=== PATIENT | male | born 1985 | race Caucasian/White ===

== ENCOUNTER 2019-01-24 22:12 | Emergency (ER) | payer MEDICAID ==
[~2019-01-24] VITALS: Ht 180.3 cm; Wt 69.9 kg
--- NOTE | 2019-01-24 23:04 | NUR ---
PT BECAME VERBALLY AGGRESSIVE TO STAFF STATING "DONT TELL ME TO FUCK OFF." WHEN NOBODY HAD EVEN TALKED TO HIM. STARTED SCREAMING INCOHERENTLY AT STAFF AND SECURITY IS AT BEDSIDE FOR STANDBY.
--- NOTE | 2019-01-24 23:05 | NUR ---
ADMITS TO TAKING 3 VICODIN [employer]IST DUE TO "BEING SAD." PUPILS ARE 1-2MM AND VERY SLUGGISH
[2019-01-24 23:14] LABS: BASOPHILS % (AUTO) 0.5 % (0-1); EOSINOPHILS # (AUTO) 0.1 X10'3 (0-0.9); EOSINOPHILS % (AUTO) 1.7 % (0-6); HEMATOCRIT 43.8 % (42.0-52.0); HEMOGLOBIN 14.7 g/dl (14.0-17.9); LYMPHOCYTES # (AUTO) 2.1 X10'3 (1.1-4.8); MEAN CORPUSCULAR HEMOGLOBIN 31.4 PG (27.0-31.0); MEAN CORPUSCULAR HGB CONC 33.7 g/dL (33.0-36.5); MEAN CORPUSCULAR VOLUME 93.3 FL (78-98); MEAN PLATELET VOLUME 7.8 FL (7.4-10.4); MONOCYTES # (AUTO) 1.1 X10'3 (0-0.9); MONOCYTES % (AUTO) 16.8 % (2-12); NEUTROPHILS # (AUTO) 3.4 X10'3 (1.8-7.7); PLATELET COUNT 223 X10'3 (140-440); RED BLOOD COUNT 4.69 X10'6 (4.70-6.10); RED CELL DISTRIBUTION WIDTH 15.8 % (11.5-14.5); WHITE BLOOD COUNT 6.8 X10'3 (4.5-11.0)
[2019-01-24 23:30] LABS: ALBUMIN 3.9 G/DL (3.4-5.0); ALKALINE PHOSPHATASE 175 IU/L (46-116); ANION GAP 6 (8-16); BILIRUBIN,TOTAL 5.8 MG/DL (0.1-1.0); BLOOD UREA NITROGEN 9 MG/DL (7-18); BUN/CREATININE RATIO 10.6 (5.4-32.0); CALCIUM 9.2 MG/DL (8.5-10.1); CHLORIDE 99 MMOL/L (99-107); CREATININE 0.85 MG/DL (0.60-1.10); GLUCOSE 92 MG/DL (70-104); POTASSIUM 3.9 MMOL/L (3.5-5.1); SODIUM 139 MMOL/L (135-145); TOTAL CARBON DIOXIDE 33.7 MMOL/L (24-32); eGFR > 90 ML/MIN
[2019-01-24 23:32] LABS: ETHANOL < 0.010 GM/DL (0.0-0.010); LIPASE 86 U/L (73-393)
[2019-01-24 23:45] LABS: ALBUMIN/GLOBULIN RATIO 1.1 (1.1-1.5); TOTAL PROTEIN 7.6 G/DL (6.4-8.2)
[2019-01-24 23:51] LABS: ALANINE AMINOTRANSFERASE 2819 U/L (12-78); ASPARTATE AMINO TRANSFERASE 1130 U/L (10-37)
--- NOTE | 2019-01-24 23:52 | NUR ---
pt refusing to urinate
--- NOTE | 2019-01-25 00:23 | NUR ---
ATTEMPTED TO HAVE PT URINATE-PT REFUSED. MD AWARE OF CONTINUED REFUSALS.
--- NOTE | 2019-01-25 00:26 | NUR ---
pt refusing multiple attempts to give urine. states he just wants to sleep. aware
[2019-01-25] MEDS ORDERED: iohexol 300mg/ml 100ml inj. ONE (01:21)
--- NOTE | 2019-01-25 01:56 | NUR ---
pt threw urinal at staff after asking for urine sample. aware. with clear ct, dc expected
[2019-01-25 02:29] LABS: URINE AMPHETAMINE SCREEN NEGATIVE (Neg); URINE BARBITUATE SCREEN NEGATIVE (Neg); URINE BENZODIAZEPINES SCREEN NEGATIVE (Neg); URINE CANNABINOID SCREEN POSITIVE (Neg); URINE COCAINE SCREEN NEGATIVE (Neg); URINE METHADONE SCREEN NEGATIVE (Neg); URINE OPIATE SCREEN POSITIVE (Neg); URINE PHENCYCLIDINE SCREEN NEGATIVE (Neg)
[2019-01-25 02:37] LABS: ACETAMINOPHEN < 2.0 UG/ML (10-30)
[2019-01-25 03:40] VITALS: BP 113/74
== END 2019-01-25 05:04 | disposition home or self-care (01) ==
LOC: ER 22:15
DX: F11.10 Opioid abuse, uncomplicated (principal); B19.20 Unspecified viral hepatitis C without hepatic coma; F31.9 Bipolar disorder, unspecified; F20.9 Schizophrenia, unspecified; F17.200 Nicotine dependence, unspecified, uncomplicated; F12.90 Cannabis use, unspecified, uncomplicated
CPT/HCPCS: 36415; 74177; 80053; 80305; 80320; 80329; 83690; 85025; 99284; Q9967

== ENCOUNTER 2019-01-31 06:13 | Emergency (ER) | payer MEDICAID ==
[~2019-01-31] VITALS: Ht 177.8 cm; Wt 68.2 kg
[2019-01-31] MEDS ORDERED: ondansetron/PF 4mg/2ml inj IV ONE (06:45)
[2019-01-31] MEDS ORDERED: normal saline 1000ML IV soln IVB ONE (06:45)
[2019-01-31 07:02] LABS: BASOPHILS % (AUTO) 0.6 % (0-1); EOSINOPHILS # (AUTO) 0.1 X10'3 (0-0.9); EOSINOPHILS % (AUTO) 1.3 % (0-6); HEMATOCRIT 37.3 % (42.0-52.0); HEMOGLOBIN 12.9 g/dl (14.0-17.9); LYMPHOCYTES # (AUTO) 2.1 X10'3 (1.1-4.8); LYMPHOCYTES % (AUTO) 29.8 % (21-51); MEAN CORPUSCULAR HEMOGLOBIN 31.9 PG (27.0-31.0); MEAN CORPUSCULAR HGB CONC 34.4 g/dL (33.0-36.5); MEAN CORPUSCULAR VOLUME 92.5 FL (78-98); MEAN PLATELET VOLUME 8.1 FL (7.4-10.4); MONOCYTES # (AUTO) 0.9 X10'3 (0-0.9); MONOCYTES % (AUTO) 13.3 % (2-12); NEUTROPHILS # (AUTO) 3.8 X10'3 (1.8-7.7); PLATELET COUNT 289 X10'3 (140-440); RED BLOOD COUNT 4.03 X10'6 (4.70-6.10); RED CELL DISTRIBUTION WIDTH 16.4 % (11.5-14.5); WHITE BLOOD COUNT 6.9 X10'3 (4.5-11.0)
--- NOTE | 2019-01-31 07:16 | NUR ---
pt sleeping in bed in no distress
[2019-01-31 07:17] LABS: ALANINE AMINOTRANSFERASE 897 U/L (12-78); ALBUMIN 3.4 G/DL (3.4-5.0); ALKALINE PHOSPHATASE 143 IU/L (46-116); ANION GAP 10 (8-16); ASPARTATE AMINO TRANSFERASE 160 U/L (10-37); BILIRUBIN,TOTAL 3.1 MG/DL (0.1-1.0); BLOOD UREA NITROGEN 10 MG/DL (7-18); BUN/CREATININE RATIO 13.7 (5.4-32.0); CALCIUM 8.8 MG/DL (8.5-10.1); CHLORIDE 107 MMOL/L (99-107); CREATININE 0.73 MG/DL (0.60-1.10); GLUCOSE 98 MG/DL (70-104); LIPASE 141 U/L (73-393); POTASSIUM 4.2 MMOL/L (3.5-5.1); SODIUM 142 MMOL/L (135-145); TOTAL CARBON DIOXIDE 25.4 MMOL/L (24-32); TOTAL PROTEIN 6.9 G/DL (6.4-8.2); eGFR > 90 ML/MIN
[2019-01-31 08:31] VITALS: BP 99/57
== END 2019-01-31 08:36 | disposition home or self-care (01) ==
LOC: ER 06:13
DX: R11.2 Nausea with vomiting, unspecified (principal); B19.20 Unspecified viral hepatitis C without hepatic coma; F31.9 Bipolar disorder, unspecified; F20.9 Schizophrenia, unspecified; F11.90 Opioid use, unspecified, uncomplicated
CPT/HCPCS: 36415; 80053; 83690; 85025; 96374; 99283; J2405; J7030